=== PATIENT | male | born 1930 | race Caucasian/White ===

== ENCOUNTER 2022-03-04 11:37 | Inpatient (IN) | payer OTHER ==
[2022-03-04] MEDS ORDERED: ACETAMINOPHEN 1000 MG/100 ML BAG IVPB ONE (12:10)
[2022-03-04 12:28] VITALS: BMI 22.8
[2022-03-04 13:40] LABS: HEMATOCRIT 40.9 % (35.4-49); HEMOGLOBIN 13.9 GM/dL (11.7-16.9); MCH 31.5 pg (25.7-33.7); MCHC 33.9 g/dl (32.0-35.9); MEAN PLT VOLUME 7.6 fl (7.5-11.1); PLATELET COUNT 205 10^3/uL (134-434); RBC 4.39 M/mm3 (4.00-5.60); RDW 15.1 % (11.9-15.9); WHITE BLOOD COUNT 9.2 K/mm3 (4.0-10.0)
[2022-03-04 13:46] LABS: VENOUS BASE EXCESS -5.1 mmol/L (-2-2); VENOUS O2 SATURATION 62.7 % (70-80); VENOUS PCO2 54.2 mmHg (38-52); VENOUS PH 7.244 (7.310-7.410)
[2022-03-04 13:49] LABS: INR 1.19 (0.83-1.09); PROTHROMBIN TIME (PATIENT) 13.7 SEC (9.7-13.0)
[2022-03-04 13:52] LABS: ACTIVATED PTT 28.7 SECONDS (25.2-36.5)
[2022-03-04 14:08] LABS: CALCIUM 8.7 mg/dL (8.5-10.1)
[2022-03-04 14:09] LABS: ALBUMIN 3.6 g/dl (3.4-5.0); BLOOD UREA NITROGEN 23.7 mg/dL (7-18)
[2022-03-04 14:12] LABS: CREATININE 1.2 mg/dL (0.55-1.3)
[2022-03-04 14:13] LABS: BILIRUBIN,TOTAL 0.8 mg/dL (0.2-1); TOT PROT 7.4 g/dl (6.4-8.2)
[2022-03-04 14:14] LABS: LACTIC ACID 4.9 mmol/L (0.4-2.0)
[2022-03-04] MEDS ORDERED: LACTATED RINGERS SOLUTION 1000 ML INFUS.BAG IV ONE (14:24)
[2022-03-04] MEDS ORDERED: ACETAMINOPHEN INJECTION 100 ML IVPB ONE (14:31)
[2022-03-04 14:33] LABS: ANISOCYTOSIS 0; MACROCYTOSIS 0
[2022-03-04 16:28] LABS: EPI CELLS 26 /uL (0-25.1); HYALINE CASTS 9 /uL (0-3.1); URINE APPEARANCE CLOUDY; URINE BACTERIA 17 /uL (0-1359); URINE BILIRUBIN 1+ (NEGATIVE); URINE COLOR DK YELLOW; URINE GLUCOSE (UA) NEGATIVE (NEGATIVE); URINE KETONE TRACE (NEGATIVE); URINE LEUK ESTERASE NEGATIVE (NEGATIVE); URINE NITRITE NEGATIVE (NEGATIVE); URINE PROTEIN 1+ (NEGATIVE); URINE WBC 47 /uL (0-25.8)
[2022-03-04] MEDS ORDERED: PIPERACILLIN/TAZOB 3.375 GM 3.375 GM in DEXTROSE 5%-WATER - 50 ML IVPB ONE (17:12)
[2022-03-04] MEDS ORDERED: VANCOMYCIN 1 GM in D5W (PRE-DOCKED) 1,000 MG/250 ML IVPB ONE (17:12)
[2022-03-04] MEDS ORDERED: VANCOMYCIN 1 GRAM (PRE-DOCKED) 1,000 MG/250 ML BAG IVPB ONE (17:26)
[2022-03-04] MEDS ORDERED: PIPERACILLIN/TAZOB 3.375 GM 3.375 GM/50 ML BAG IVPB ONE (17:27)
[2022-03-04 18:48] LABS: URINE RBC 122 /uL (0-23.9)
[2022-03-04 21:43] LABS: LACTIC ACID 3.4 mmol/L (0.4-2.0)
[2022-03-04] MEDS ORDERED: SODIUM CHLORIDE 1,000 ML IV STA (23:04)
[2022-03-04] MEDS ORDERED: ACETAMINOPHEN 1000 MG/100 ML BAG IVPB PRN (23:17)
[2022-03-05] MEDS ORDERED: PIPERACILLIN/TAZOB 3.375 GM 3.375 GM/50 ML BAG IVPB ONE ×2 (01:40→10:30)
[2022-03-05] MEDS: PIPERACILLIN/TAZOB 3.375 GM 3.375 GM in DEXTROSE 5%-WATER - 50 ML IVPB SCH ×2 (01:47→10:42)
[2022-03-05] MEDS ORDERED: PIPERACILLIN/TAZOB 3.375 GM 3.375 GM in DEXTROSE 5%-WATER - 50 ML IVPB SCH (02:00)
[2022-03-05 06:10] LABS: LACTIC ACID 2.3 mmol/L (0.4-2.0)
[2022-03-05] MEDS: INSULIN (NOVOLOG) ASPART 100 UNITS/ML 10ML VIAL SQ SCH ×4 (07:31→22:20)
[2022-03-05] MEDS ORDERED: ENOXAPARIN NA (PORCINE) 40 MG/0.4 ML DISP.SYRIN SQ ONE (10:30)
[2022-03-05] MEDS: ENOXAPARIN NA (PORCINE) 40 MG/0.4 ML DISP.SYRIN SQ SCH (10:41)
[2022-03-05] MEDS: MIDODRINE HCL 5 MG TABLET PO SCH ×2 (10:42→18:56)
[2022-03-05] MEDS ORDERED: VANCOMYCIN/WATER FOR INJ (PEG) 1,000 MG/200 ML BAG IVPB SCH (17:00)
[2022-03-05] MEDS ORDERED: VANCOMYCIN 1 GM in D5W (PRE-DOCKED) 1,000 MG/250 ML IVPB SCH (17:00)
[2022-03-05 19:49] LABS: BASO % 0.5 % (0-2.0); HEMOGLOBIN 13.7 GM/dL (11.7-16.9); LYMPH % 13.1 % (8-40); MCH 31.4 pg (25.7-33.7); MCHC 34.3 g/dl (32.0-35.9); MEAN CELL VOLUME 91.7 fl (80-96); MEAN PLT VOLUME 7.6 fl (7.5-11.1); MONO % 7.8 % (3.8-10.2); NEUT % 77.6 % (42.8-82.8); PLATELET COUNT 191 10^3/uL (134-434); RBC 4.36 M/mm3 (4.00-5.60); WHITE BLOOD COUNT 6.2 K/mm3 (4.0-10.0)
[2022-03-05 19:58] LABS: CALCIUM 8.5 mg/dL (8.5-10.1)
[2022-03-05 19:59] LABS: BLOOD UREA NITROGEN 21.6 mg/dL (7-18)
[2022-03-05 20:01] LABS: CREATININE 0.8 mg/dL (0.55-1.3)
[2022-03-05 20:02] LABS: PHOSPHOROUS 2.6 mg/dL (2.5-4.9); TOT PROT 6.1 g/dl (6.4-8.2)
[2022-03-05 20:03] LABS: BILIRUBIN,TOTAL 0.5 mg/dL (0.2-1)
[2022-03-05] MEDS: LATANOPROST 0.005% OPHTH SOLN 2.5ML BOTTLE OU SCH (22:18)
[2022-03-06] MEDS: INSULIN (NOVOLOG) ASPART 100 UNITS/ML 10ML VIAL SQ SCH ×4 (06:32→21:31)
[2022-03-06] MEDS: MIDODRINE HCL 5 MG TABLET PO SCH ×2 (09:36→18:07)
[2022-03-06] MEDS: ENOXAPARIN NA (PORCINE) 40 MG/0.4 ML DISP.SYRIN SQ SCH (09:36)
[2022-03-06 19:36] LABS: EPI CELLS 2 /uL (0-25.1); HYALINE CASTS 2 /uL (0-3.1); URINE APPEARANCE CLEAR; URINE BACTERIA 5 /uL (0-1359); URINE BILIRUBIN NEGATIVE (NEGATIVE); URINE COLOR DK YELLOW; URINE GLUCOSE (UA) NEGATIVE (NEGATIVE); URINE KETONE TRACE (NEGATIVE); URINE LEUK ESTERASE NEGATIVE (NEGATIVE); URINE NITRITE NEGATIVE (NEGATIVE); URINE PROTEIN TRACE (NEGATIVE); URINE RBC 36 /uL (0-23.9); URINE WBC 8 /uL (0-25.8)
[2022-03-06] MEDS: LATANOPROST 0.005% OPHTH SOLN 2.5ML BOTTLE OU SCH (21:31)
[2022-03-07] MEDS: INSULIN (NOVOLOG) ASPART 100 UNITS/ML 10ML VIAL SQ SCH ×4 (06:49→21:34)
[2022-03-07 07:35] LABS: BASO % 0.5 % (0-2.0); EOS % 1.5 % (0-4.5); HEMATOCRIT 36.4 % (35.4-49); HEMOGLOBIN 12.7 GM/dL (11.7-16.9); LYMPH % 20.2 % (8-40); MEAN CELL VOLUME 91.4 fl (80-96); MONO % 11.3 % (3.8-10.2); NEUT % 66.5 % (42.8-82.8); PLATELET COUNT 181 10^3/uL (134-434); RBC 3.98 M/mm3 (4.00-5.60); RDW 14.7 % (11.9-15.9); WHITE BLOOD COUNT 6.3 K/mm3 (4.0-10.0)
[2022-03-07 07:54] LABS: CALCIUM 8.5 mg/dL (8.5-10.1)
[2022-03-07 07:55] LABS: ALBUMIN 2.6 g/dl (3.4-5.0); BLOOD UREA NITROGEN 23.9 mg/dL (7-18)
[2022-03-07 07:58] LABS: CREATININE 0.7 mg/dL (0.55-1.3)
[2022-03-07 07:59] LABS: BILIRUBIN,TOTAL 0.4 mg/dL (0.2-1); TOT PROT 5.7 g/dl (6.4-8.2)
[2022-03-07] MEDS: MIDODRINE HCL 5 MG TABLET PO SCH ×2 (09:03→18:24)
[2022-03-07] MEDS: ENOXAPARIN NA (PORCINE) 40 MG/0.4 ML DISP.SYRIN SQ SCH (09:03)
[2022-03-07] MEDS: LATANOPROST 0.005% OPHTH SOLN 2.5ML BOTTLE OU SCH (21:33)
[2022-03-08] MEDS ORDERED: ONDANSETRON 4 MG/2 ML VIAL IVPUSH ONE (04:21)
[2022-03-08] MEDS ORDERED: ONDANSETRON 4 MG/2 ML VIAL IVPUSH PRN (04:23)
[2022-03-08] MEDS: INSULIN (NOVOLOG) ASPART 100 UNITS/ML 10ML VIAL SQ SCH ×4 (06:51→21:24)
[2022-03-08] MEDS: PANTOPRAZOLE SODIUM 40 MG VIAL IVPUSH SCH (10:23)
[2022-03-08] MEDS: ENOXAPARIN NA (PORCINE) 40 MG/0.4 ML DISP.SYRIN SQ SCH (10:23)
[2022-03-08] MEDS: MIDODRINE HCL 5 MG TABLET PO SCH ×2 (12:11→17:14)
[2022-03-08] MEDS: LATANOPROST 0.005% OPHTH SOLN 2.5ML BOTTLE OU SCH (21:25)
[2022-03-09] MEDS ORDERED: dilTIAZem HCL 25 MG/5 ML - 5 ML VIAL IVPUSH ONE (01:15)
[2022-03-09] MEDS: INSULIN (NOVOLOG) ASPART 100 UNITS/ML 10ML VIAL SQ SCH ×4 (05:59→21:40)
[2022-03-09] MEDS: PANTOPRAZOLE SODIUM 40 MG VIAL IVPUSH SCH (10:58)
[2022-03-09] MEDS: ENOXAPARIN NA (PORCINE) 40 MG/0.4 ML DISP.SYRIN SQ SCH (10:58)
[2022-03-09] MEDS: MIDODRINE HCL 5 MG TABLET PO SCH ×2 (10:58→18:01)
[2022-03-09] MEDS: LATANOPROST 0.005% OPHTH SOLN 2.5ML BOTTLE OU SCH (21:34)
[2022-03-10] MEDS: INSULIN (NOVOLOG) ASPART 100 UNITS/ML 10ML VIAL SQ SCH ×4 (07:42→21:35)
[2022-03-10] MEDS: MEMANTINE HCL 5 MG TABLET (UD) PO SCH (10:19)
[2022-03-10] MEDS: ENOXAPARIN NA (PORCINE) 40 MG/0.4 ML DISP.SYRIN SQ SCH (10:19)
[2022-03-10] MEDS: PANTOPRAZOLE SODIUM 40 MG VIAL IVPUSH SCH (10:19)
[2022-03-10] MEDS: MIDODRINE HCL 5 MG TABLET PO SCH ×2 (10:19→18:13)
[2022-03-10] MEDS: LATANOPROST 0.005% OPHTH SOLN 2.5ML BOTTLE OU SCH (21:35)
[2022-03-11] MEDS: INSULIN (NOVOLOG) ASPART 100 UNITS/ML 10ML VIAL SQ SCH ×3 (06:14→16:41)
[2022-03-11] MEDS: ENOXAPARIN NA (PORCINE) 40 MG/0.4 ML DISP.SYRIN SQ SCH (10:05)
[2022-03-11] MEDS: MEMANTINE HCL 5 MG TABLET (UD) PO SCH (10:06)
[2022-03-11] MEDS: MIDODRINE HCL 5 MG TABLET PO SCH ×2 (10:06→17:34)
[2022-03-11] MEDS: PANTOPRAZOLE SODIUM 40 MG VIAL IVPUSH SCH (10:06)
[2022-03-11 13:06] VITALS: TEMP 98
[2022-03-11 14:09] VITALS: BP 127/69; PULSE 74
[2022-03-12] MEDS ORDERED: MULTIVITAMINS (DAILY MVI) TABLET (FP) PO SCH (10:00)
== END 2022-03-11 18:20 | DRG 57 ==
LOC: JER 11:37 → JERBED 19:20 → J4W 03-05 16:32
PROVIDERS: ADMIT Internal Medicine
PROC: 2W3KX1Z Immobilization of Left Finger using Splint (ICD-10-PCS; principal; 2022-03-04)
DX: G20 Parkinson's disease (principal); J98.11 Atelectasis; K92.0 Hematemesis; I50.32 Chronic diastolic (congestive) heart failure; E87.2 Acidosis; I95.9 Hypotension, unspecified; E86.1 Hypovolemia; J45.909 Unspecified asthma, uncomplicated; E11.9 Type 2 diabetes mellitus without complications; E78.5 Hyperlipidemia, unspecified; F03.90 Unspecified dementia, unspecified severity, without behavioral disturbance, psychotic disturbance, mood disturbance, and anxiety; S63.253A Unspecified dislocation of left middle finger, initial encounter; E11.65 Type 2 diabetes mellitus with hyperglycemia; F32.A Depression, unspecified; R48.2 Apraxia; I48.0 Paroxysmal atrial fibrillation; E86.0 Dehydration; I11.0 Hypertensive heart disease with heart failure; I25.119 Atherosclerotic heart disease of native coronary artery with unspecified angina pectoris; R79.89 Other specified abnormal findings of blood chemistry; R62.7 Adult failure to thrive; S00.83XA Contusion of other part of head, initial encounter; W18.39XA Other fall on same level, initial encounter; Y92.098 Other place in other non-institutional residence as the place of occurrence of the external cause; Z99.3 Dependence on wheelchair; Z86.73 Personal history of transient ischemic attack (TIA), and cerebral infarction without residual deficits; Z68.22 Body mass index [BMI] 22.0-22.9, adult; Z91.81 History of falling
CPT/HCPCS: 36415; 70450-TC; 71045-TC-FY; 71046-TC-FY; 72125-TC; 73110-TC-LT-FY; 73130-TC-LT-FY; 80053; 80061; 81003; 82803; 82962; 83605; 83735; 84100; 84484; 85025; 85610; 85730; 86787; 87040; 87086; 93005; 93010; 93306-TC; 93880-TC; 97116-GP; 97161-GP; 99285-25; C9803-CS; U0003; U0005